=== PATIENT | male | born 1980 | race Hispanic/Latino ===

== ENCOUNTER 2022-04-30 14:47 | Emergency (ER) | payer OTHER ==
[2022-04-30] MEDS ORDERED: IBUPROFEN 400 MG TAB ONE (15:16)
--- NOTE | 2022-04-30 16:13 | RAD REPORT ---
EXAM DESCRIPTION: RAD - Hand Right 3 View - 04/30/2022 4:00 pm CLINICAL HISTORY: PAIN COMPARISON: No comparisons FINDINGS: Dislocation is seen involving the interphalangeal joint of the first finger. Old trauma is present involving the of the fourth and fifth metacarpals.
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
--- NOTE | 2022-04-30 18:38 | RAD REPORT ---
EXAM DESCRIPTION: RAD - Hand Right 2 View - 04/30/2022 5:16 pm CLINICAL HISTORY: postreduction Trauma, pain COMPARISON: Hand Right 3 View dated 04/30/2022 FINDINGS: Previously noted dislocation of the interphalangeal joint of the first finger has been red uced. Moderate soft tissue swelling is present.
[2022-04-30 18:43] VITALS: TEMP 97.6
[2022-04-30 18:46] VITALS: BP 150/90; O2SAT 99
== END 2022-04-30 17:33 | disposition home or self-care (01) ==
LOC: ER 14:47
PROC: 0RSWXZZ Reposition Right Finger Phalangeal Joint, External Approach (ICD-10-PCS; principal; 2022-04-30)
DX: S63.104A Unspecified dislocation of right thumb, initial encounter (principal); I10 Essential (primary) hypertension
CPT/HCPCS: 64450; 99283